=== PATIENT | female | born 1975 | race African-American/Black ===

== ENCOUNTER 2017-09-23 15:31 | Emergency (ER) | payer SELFPAY ==
[2017-09-23] MEDS: NAPROXEN 500 MG TABLET PO (16:53)
== END 2017-09-23 16:54 | disposition home or self-care (01) ==
LOC: ER 15:31
DX: S93.402A Sprain of unspecified ligament of left ankle, initial encounter (principal); S93.602A Unspecified sprain of left foot, initial encounter; F14.90 Cocaine use, unspecified, uncomplicated; X58.XXXA Exposure to other specified factors, initial encounter; Y93.89 Activity, other specified; Y92.89 Other specified places as the place of occurrence of the external cause; Y99.8 Other external cause status
CPT/HCPCS: 73610; 73630; 99284